=== PATIENT | male | born 1945 | race Caucasian/White ===

== ENCOUNTER 2019-09-03 14:49 | Outpatient (CLI) | payer BC, MEDICARE | END 2019-09-03 23:59 | disposition home or self-care (01) | LOC: CFH 14:49 | PROVIDERS: ATTEND Internal Medicine Cardiovascular Disease | DX: I08.3 Combined rheumatic disorders of mitral, aortic and tricuspid valves (principal); I10 Essential (primary) hypertension | CPT/HCPCS: 93306 ==

== ENCOUNTER → 2020-07-02 | Outpatient (CLI) | payer MEDICARE ==
[~2020-07-02] MED LIST: APIX5TAB PO; ATOR40TA78 PO; CARV6.252 PO; ENAL10TA9 PO; HYDR25TA6 PO
== END | disposition home or self-care (01) ==
LOC: CFH 13:20
PROVIDERS: ATTEND Internal Medicine Clinical Cardiac Electrophysiology
DX: I08.3 Combined rheumatic disorders of mitral, aortic and tricuspid valves (principal); I71.2 Thoracic aortic aneurysm, without rupture; I10 Essential (primary) hypertension; I48.91 Unspecified atrial fibrillation; Z87.891 Personal history of nicotine dependence; E78.5 Hyperlipidemia, unspecified; Z79.01 Long term (current) use of anticoagulants; Z95.1 Presence of aortocoronary bypass graft
CPT/HCPCS: 93306

== ENCOUNTER → 2020-10-06 | Outpatient (CLI) | payer MEDICARE ==
[~2020-10-06] MED LIST changes: +REGADENOSON 0.4 MG/5 ML SYRINGE ONE
== END | disposition home or self-care (01) ==
LOC: CFH 08:18
PROVIDERS: ATTEND Internal Medicine Clinical Cardiac Electrophysiology
DX: I21.29 ST elevation (STEMI) myocardial infarction involving other sites (principal); I25.10 Atherosclerotic heart disease of native coronary artery without angina pectoris; I42.9 Cardiomyopathy, unspecified; I25.89 Other forms of chronic ischemic heart disease; Z95.1 Presence of aortocoronary bypass graft
CPT/HCPCS: 78452; 93017; A9502; J2785

== ENCOUNTER 2020-10-27 05:52 | Day surgery (SDC) | payer MEDICARE ==
[~2020-10-27] VITALS: Ht 182.9 cm; Wt 102.3 kg
[~2020-10-27 05:52] MED LIST changes: -REGADENOSON 0.4 MG/5 ML SYRINGE ONE
[2020-10-27] MEDS ORDERED: APIX5TAB PO (06:23)
[2020-10-27] MEDS ORDERED: AMIO200T42 PO (06:23)
[2020-10-27] MEDS ORDERED: ASPI81TA45 PO (06:23)
[2020-10-27 06:27] VITALS: BP 143/87
[2020-10-27 06:54] LABS: ANION GAP 5 mmol/L (5-15); CALCIUM 9.6 mg/dL (8.5-10.1); CHLORIDE 110 mmol/L (98-107)
[2020-10-27] MEDS ORDERED: PROPOFOL 10 MG/ML, 20ML ONE (07:44)
== END 2020-10-27 08:50 | disposition home or self-care (01) ==
LOC: CACL 05:52
PROVIDERS: ATTEND Internal Medicine Cardiovascular Disease
DX: I48.19 Other persistent atrial fibrillation (principal); I25.10 Atherosclerotic heart disease of native coronary artery without angina pectoris; E78.2 Mixed hyperlipidemia; I73.9 Peripheral vascular disease, unspecified; I10 Essential (primary) hypertension; E11.9 Type 2 diabetes mellitus without complications; J44.9 Chronic obstructive pulmonary disease, unspecified; Z79.01 Long term (current) use of anticoagulants; Z72.0 Tobacco use; Z79.82 Long term (current) use of aspirin; Z79.899 Other long term (current) drug therapy; Z95.1 Presence of aortocoronary bypass graft
CPT/HCPCS: 36415; 80048; 92960; 93005; J2704